=== PATIENT | male | born 1985 | race Caucasian/White ===

== ENCOUNTER 2016-10-26 08:04 | Emergency (ER) | payer OTHER ==
[2016-10-26 08:11] VITALS: RESP 16; TEMP 97.5; O2SAT 97
[2016-10-26] MEDS ORDERED: NS 1,000 ML IV ONE (08:23)
[2016-10-26 08:44] LABS: % IMMATURE GRANULYOCYTES 0.2 % (0.0-1.1); ABSOLUTE IMMATURE GRANULOCYTES 0.01 10^3/uL (0.00-0.10); ADD DIFF? NO; ADD MORPH? NO; ADD SCAN? NO; ATYPICAL LYMPHOCYTE FLAG 10 (0-99); FRAGMENT RBC FLAG 0 (0-99); HEMATOCRIT 45.4 % (40.0-51.0); HEMOGLOBIN 15.8 g/dL (13.7-17.5); LEFT SHIFT FLG 0 (0-99); LIPEMIA HEMOLYSIS FLAG 90 (0-99); MEAN CELL HEMOGLOBIN 30.3 pg (27.9-34.1); MEAN CELL HEMOGLOBIN CONCENTR. 34.8 g/dL (32.4-36.7); MEAN PLATELET VOLUME 10.5 fL (8.7-11.7); PLATELET CLUMPS FLAG 10 (0-99); PLATELET COUNT 207 10^3/uL (150-400); RED BLOOD CELL COUNT 5.22 10^6/uL (4.40-6.38); RED CELL DISTRIBUTION WIDTH 11.9 % (11.5-15.2)
[2016-10-26 08:56] LABS: ANION GAP 12 mEq/L (8-16); CALCIUM 10.6 mg/dL (8.5-10.4); CARBON DIOXIDE 26 mEq/l (22-31); CHLORIDE 102 mEq/L (97-110); CREATININE 0.9 mg/dL (0.7-1.3); GLOMERULAR FILTRATION RATE > 60; GLUCOSE 87 mg/dL (70-100); POTASSIUM 4.6 mEq/L (3.5-5.2); SODIUM 140 mEq/L (134-144)
--- NOTE | 2016-10-26 09:14 | CPEKG ---
Heart Rate: 49 RR Interval: 1224 P-R Interval: 152 QRSD Interval: 102 QT Interval: 452 QTC Interval: 409 P Fabens: 73 QRS Fabens: 70 T Wave Fabens: 37 EKG Severity - ABNORMAL ECG - EKG Impression: SINUS BRADYCARDIA EKG Impression: PROBABLE LEFT VENTRICULAR HYPERTROPHY EKG Impression: ST ELEV, PROBABLE NORMAL EARLY REPOL PATTERN Electronically Signed By: Tatum Owens 26-Oct-2016 11:45:01
--- NOTE | 2016-10-26 09:57 | EDPHY ---
H & P Stated Complaint: 4 days lightheaded with body aches Time Seen by Provider: 10/26/16 08:13 HPI/ROS: Chief complaint: Lightheadedness History of present illness: This is a 30-year-old male who presents to the emergency department reporting lightheadedness. Patient reports the onset of symptoms approximately 4-5 days ago. He states he was swimming when he started to feel lightheaded. He has a hard time describing the lightheadedness, it feels a little off balance. He has had associated body aches. He states symptoms have been intermittent. He denies precipitating factors. He has noted symptoms at different times, sometimes when he is exercising, sometimes at rest but never persistently provoked by any activity. He has had associated body aches. He denies other associated signs or symptoms including no fevers or cold symptoms, no actual pain including no headache, no chest pain, no abdominal pain, no shortness of breath, no pain or swelling in the legs, no neurologic symptoms such as paresthesias, weakness or paralysis or bowel or bladder dysfunction. Review of systems: A 10 point review of systems was obtained and other than described above was negative - Personal History Current Tetanus/Diphtheria Vaccine: Unsure - Medical/Surgical History Hx Asthma: No Hx Chronic Respiratory Disease: No Hx Diabetes: No Hx Cardiac Disease: No Hx Renal Disease: No Hx Cirrhosis: No Hx Alcoholism: No Hx HIV/AIDS: No Hx Splenectomy or Spleen Trauma: No Other PMH: denies - Social History Smoking Status: Never smoked - Physical Exam Exam: General Appearance: Alert, nontoxic. Eyes: Pupils equal and round no pallor or injection. ENT, Mouth:Tympanic membranes, external auditory canals, external ears and surrounding soft tissue including over the mastoids are unremarkable. Nasopharynx is not injected. There is no rhinorrhea. Oropharynx is not injected. There is no edema. There is no exudate. There is no asymmetry. The uvula is midline. No elevation of the tongue. There is no hoarseness, no drooling, no trismus, no stridor. Respiratory: There are no retractions, lungs are clear to auscultation. Cardiovascular: Regular rate and rhythm. Gastrointestinal: Abdomen is soft and non tender, no masses, bowel sounds normal. Neurological: Alert and oriented x4. Cranial nerves 2-12 grossly intact. Strength and sensation intact and symmetrical. He is ambulating without difficulty. Skin: Warm and dry, no rashes. Musculoskeletal: Neck is supple non tender. Extremities are symmetrical, full range of motion. Psychiatric: Patient is oriented X 3, there is no agitation. Constitutional: Initial Vital Signs Temperature (C) 36.4 C 10/26/16 08:10 Heart Rate 52 L 10/26/16 08:10 Respiratory Rate 16 10/26/16 08:10 Blood Pressure 120/73 10/26/16 08:10 O2 Sat (%) 97 10/26/16 08:10 O2 Delivery Mode Room Air Allergies/Adverse Reactions: No Known Allergies Allergy (Unverified 10/26/16 08:09) Home Medications: Medication Instructions Recorded Meclizine HCl [Meclizine HCl 25 mg 25 mg PO TID #10 tab 10/26/16 (RX,OTC)] Medical Decision Making ED Course/Re-evaluation: Patient is discussed with my primary supervising physician Dr. Tatum Owens. Patient presents to the emergency department describing lightheadedness and body aches. He is having a hard time characterizing the lightheadedness but it does sound somewhat like he is off balance. On presentation he is nontoxic. He is afebrile and vital signs are stable. He has an unremarkable physical exam including a nonfocal neurologic exam. Blood studies and EKG unremarkable. My suspicion for serious pathology is low. Again he not have headache and he has a nonfocal neurologic exam I do not believe imaging studies of the brain are warranted at this time. There is no shortness of breath, no chest pain, it is not exertional I do not believe further cardiac evaluation is necessary. Patient will be discharged home. I will symptomatically treat him with a trial of meclizine. I have asked him to follow up with a primary care doctor this week for further evaluation and care. He is asked not to engage in his normal training/physical activity until he is seen by a primary care doctor. Home care is discussed. Return precautions are given. Patient voiced understanding and agreement with plan. Differential Diagnosis: Included but not limited to vertigo including central and peripheral causes, hypovolemic state, electrolyte disturbances, infectious pathology, - Data Points Laboratory Results: Laboratory Results 10/26/16 08:35 10/26/16 08:35 10/26/16 10/26/16 08:35 08:35 WBC 5.03 10^3/uL 10^3/uL (3.80-9.50) RBC 5.22 10^6/uL 10^6/uL (4.40-6.38) Hgb 15.8 g/dL g/dL (13.7-17.5) Hct 45.4 % % (40.0-51.0) MCV 87.0 fL fL (81.5-99.8) MCH 30.3 pg pg (27.9-34.1) MCHC 34.8 g/dL g/dL (32.4-36.7) RDW 11.9 % % (11.5-15.2) Plt Count 207 10^3/uL 10^3/uL (150-400) MPV 10.5 fL fL (8.7-11.7) Neut % (Auto) 56.0 % % (39.3-74.2) Lymph % (Auto) 28.2 % % (15.0-45.0) Hand % (Auto) 7.2 % % (4.5-13.0) Eos % (Auto) 7.2 % % (0.6-7.6) Baso % (Auto) 1.2 % % (0.3-1.7) Nucleat RBC Rel Count 0.0 % % (0.0-0.2) Absolute Neuts (auto) 2.82 10^3/uL 10^3/uL (1.70-6.50) Absolute Lymphs (auto) 1.42 10^3/uL 10^3/uL (1.00-3.00) Absolute Monos (auto) 0.36 10^3/uL 10^3/uL (0.30-0.80) Absolute Eos (auto) 0.36 10^3/uL 10^3/uL (0.03-0.40) Absolute Basos (auto) 0.06 10^3/uL 10^3/uL (0.02-0.10) Absolute Nucleated RBC 0.00 10^3/uL 10^3/uL (0-0.01) Immature Gran % 0.2 % % (0.0-1.1) Immature Gran # 0.01 10^3/uL 10^3/uL (0.00-0.10) Sodium 140 mEq/L mEq/L (134-144) Potassium 4.6 mEq/L mEq/L (3.5-5.2) Chloride 102 mEq/L mEq/L (97-110) Carbon Dioxide 26 mEq/l mEq/l (22-31) Anion Gap 12 mEq/L mEq/L (8-16) BUN 13 mg/dL mg/dL (7-23) Creatinine 0.9 mg/dL mg/dL (0.7-1.3) Estimated GFR > 60 Glucose 87 mg/dL mg/dL (70-100) Calcium 10.6 mg/dL H mg/dL (8.5-10.4) Creatine Kinase 101 IU/L IU/L (0-224) Medications Given: Discontinued Medications Sodium Chloride (Ns) 1,000 mls @ 0 mls/hr IV ONCE ONE; Wide Open PRN Reason: Protocol Stop: 10/26/16 08:24 Last Admin: 10/26/16 08:43 Dose: 1,000 mls Departure - Departure Disposition: Home, Routine, Self-Care Clinical Impression: Light headedness Condition: Good Instructions: Lightheadedness (ED) Additional Instructions: Please follow-up with the primary care doctor for continued evaluation and care Use meclizine as directed as needed for symptom control Please do not engage in physical activity or training until followed up by primary care doctor If symptoms worsen or new symptoms develop return to the emergency room for recheck Referrals: NONE *PRIMARY CARE P,. [Primary Care Provider] - As per Instructions Alisson Velazquez MD [Medical Doctor] - As per Instructions [facility],. [Clinic] - As per Instructions Prescriptions: Meclizine HCl [Meclizine HCl 25 mg (RX,OTC)] 25 mg PO TID #10 tab
[2016-10-26 10:24] VITALS: BP 118/70; PULSE 50
== END 2016-10-26 10:25 | disposition home or self-care (01) ==
DX: R42 Dizziness and giddiness (principal)